=== PATIENT | male | born 1995 | race Caucasian/White ===

== ENCOUNTER 2025-08-05 20:45 | Emergency (ER) | payer OTHER ==
[~2025-08-05] VITALS: Ht 180.3 cm; Wt 101.6 kg
[2025-08-05 22:11] LABS: HIV 1&2 SCREEN NEGATIVE (NEGATIVE)
[2025-08-05 22:16] LABS: KETONE, URINE AUTO RFX NEGATIVE (NEGATIVE); LEUKOCYTE ESTERASE UR AUTO RFX NEGATIVE (NEGATIVE); NITRITE, URINE AUTO RFX NEGATIVE (NEGATIVE); RBC, URINE AUTO RFX 0 /HPF (0-3); SQUAM EPITHELIAL CELL UR AURFX 0 /HPF (0-6); WBC, URINE AUTO RFX 0 /HPF (0-3)
[2025-08-05 23:19] LABS: Trichomonas vaginalis (AMP) NOT DETECTED (NEGATIVE)
[2025-08-05 23:43] LABS: GC DNA AMPLIFICATION NEGATIVE (NEGATIVE)
[2025-08-06] MEDS ORDERED: VALA1TAB5 PO (01:00)
[2025-08-06 01:37] VITALS: BP 113/60; TEMP 97.2; O2SAT 98
== END 2025-08-06 01:51 | disposition home or self-care (01) ==
LOC: M ED 20:45
DX: A60.01 Herpesviral infection of penis (principal); F10.10 Alcohol abuse, uncomplicated; Z79.899 Other long term (current) drug therapy